=== PATIENT | female | born 1950 | race Caucasian/White ===

== ENCOUNTER → 2016-12-23 | Outpatient (CLI) | payer MEDICARE ==
[~2016-12-23] MED LIST: ALEN70 PO; AMLO10 PO; ATEN1TAB74 PO; CALTTAB2 PO; GLUCTAB PO
[2016-12-23 13:23] LABS: ALT (GPT) 30 U/L (10-53); ANION GAP 7 MEQ/L (5-15); AST (GOT) 22 U/L (15-37); BICARBONATE 28.4 MEQ/L (21.0-32.0); BLOOD UREA NITROGEN 23 MG/DL (7-18); CHLORIDE 105 MEQ/L (98-107); GLOMERULAR FILTRATION RATE 77 ML/MIN (>89); GLUCOSE,FASTING 126 MG/DL (74-99); POTASSIUM 4.2 MEQ/L (3.5-5.1); SODIUM (NA) 140 MEQ/L (136-145)
[2016-12-23 13:27] LABS: ALKALINE PHOSPHATASE 73 U/L (45-117); HDL CHOLESTEROL 41.1 MG/DL (40.0-60.0); LDL CHOLESTEROL 105 MG/DL (0-99); TOTAL BILIRUBIN ADULT 0.4 MG/DL (0.2-1.0)
== END ==
LOC: PLAB 07:54
PROVIDERS: ATTEND Family Medicine
DX: I10 Essential (primary) hypertension (principal)
CPT/HCPCS: 36415; 80053; 80061

== ENCOUNTER → 2017-04-13 | Outpatient (CLI) | payer MEDICARE ==
[2017-04-13 10:59] LABS: FREE T4 1.08 NG/DL (0.76-1.46); HDL CHOLESTEROL 34.4 MG/DL (40.0-60.0)
== END ==
LOC: PLAB 08:14
PROVIDERS: ATTEND Family Medicine
DX: M81.0 Age-related osteoporosis without current pathological fracture (principal); E11.9 Type 2 diabetes mellitus without complications; I10 Essential (primary) hypertension; M19.91 Primary osteoarthritis, unspecified site; J45.20 Mild intermittent asthma, uncomplicated; E89.0 Postprocedural hypothyroidism; Z85.3 Personal history of malignant neoplasm of breast
CPT/HCPCS: 36415; 80061; 84439; 84443

== ENCOUNTER → 2017-12-31 | Outpatient (CLI) | payer MEDICARE ==
[2017-12-31 10:02] LABS: ALBUMIN 3.9 GM/DL (3.4-5.0); BICARBONATE 25.1 MEQ/L (21.0-32.0); BLOOD UREA NITROGEN 20 MG/DL (7-18); CALCIUM 9.5 MG/DL (8.5-10.1); CHLORIDE 105 MEQ/L (98-107); SODIUM (NA) 140 MEQ/L (136-145)
[2017-12-31 10:03] LABS: AST (GOT) 17 U/L (15-37); CREATININE 0.68 MG/DL (0.50-1.00); GLOMERULAR FILTRATION RATE 86 ML/MIN (>89); GLUCOSE,FASTING 118 MG/DL (74-99)
[2017-12-31 10:09] LABS: ALKALINE PHOSPHATASE 77 U/L (45-117); ALT (GPT) 22 U/L (10-53); CHOLESTEROL 157 MG/DL (120-200); CHOLESTEROL/ HDL RATIO 4.68 RATIO; HDL CHOLESTEROL 33.5 MG/DL (40.0-60.0); LDL CHOLESTEROL 79 MG/DL (0-99); TOTAL BILIRUBIN ADULT 0.3 MG/DL (0.2-1.0); TOTAL PROTEIN 7.4 GM/DL (6.4-8.2); TRIGLYCERIDES 225 MG/DL (42-150)
== END ==
LOC: PLAB 07:45
PROVIDERS: ATTEND Family Medicine
DX: E11.9 Type 2 diabetes mellitus without complications (principal)
CPT/HCPCS: 36415; 80053; 80061